=== PATIENT | male | born 1985 | race Caucasian/White ===

== ENCOUNTER 2018-08-23 07:30 | Outpatient (RCR) | payer OTHER, SELFPAY ==
[2018-08-01 08:16] VITALS: BMI 26.4
--- NOTE | 2018-08-09 08:10 | HP.PTEVAL_ITS ---
Patient's Visit Information HIPOLITO CAVAZOS is a 33 year old M referred to Physical Therapy by Joyce Aviles DC with a diagnosis of segmental somatic dysfunction of lumbar spine. Date of Evaluation: 08/08/18 Physical Therapist: Breezy Gomez DPT - Visit Plan Frequency: 1-2x /Week Duration: 4 Weeks Plan: Start with multi directional core stability exercises including mat, standing,ball and multifidus strengthening. - Subjective Findings: Pt. is here today for his initial evaluation with diagnosis of segmental somatic dysfunction of lumbar spine. Pt. is a 33 y.o. male who has had several episodes of low back pain it locks up on me. He reports having a recent episode ~4-6 weeks ago and was seeing his chiropractor. Pt. reports having good relief with adjustments in the past and similarly in this case. He is here today to receive core stability exercises to maintain strength in order to reduce risk of future episodes. Pt. reports no pain currently. 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 He reports last episode he was on the floor on his hands and knees and twisted to reach after his kids and my back went out. He reports having adjustments and this has decreased his pain significantly. Pt. is back to most activities, but has occassional increase in symptoms with bend and twisting. Pt. denies N/T and no pain extending past L gluteal region. - Pain lumabr spine Pain Intensity (Out of 10): 0 Pain Intensity Range: 0, 3 - Objective POSTURE: Pt. has decent lumbar lordosis, but has increasd thoracic kyphosis, worse in siting. PAPATION: Pt. has no pain or muscle tigthness of lumbar erector spine. No pain with spring testing fo lumbar spine, slight hypomobility noted. NEURO: Normal throughout. ROM: LUMBAR SPINE: Pt. has full lumbar ROM without increase in symptoms, no pain with over pressures. Pt. has tight HS and hip flexors bilaterally. MMT: RLE- ankle 5/5 throughout; knee 5/5 throughout; hip- flexion 5-/5, abd 5-/5; ext 5-/5. LLE- ankle 5/5 throughout; knee 5/5 throughout; hip- flexion 5-/5, abd 5-/5; ext 5-/5. Core strength- fair-. GAIT: Normal pattern without issues. STAIRS- no issues. - Special Tests L/S Slump test left side: Negative L/S Slump test right side: Negative L/S Left Straight Leg Raise: Negative L/S Right Straight Leg Raise: Negative L/S Instability PA Test: Negative L/S Prone Instability Test: Negative Lumbar Standing: Flexion - Mechanical Response: No effect Lumbar Standing: Flexion - Symptoms During Testing: No effect Lumbar Standing: Flexion - Symptoms After Testing: No effect Lumbar Standing: Extension - Mechanical Response: No effect Lumbar Standing: Extension - Symptoms During Testing: No effect Lumbar Standing: Extension - Symptoms After Testing: No effect Lumbar Standing: Right Side Glides - Mechanical Response: No effect Lumbar Standing: Right Side [place] - Symptoms During Testing: No effect Lumbar Standing: Right Side [place] - Symptoms After Testing: No effect Lumbar Standing: Left Side [place] - Mechanical Response: No effect Lumbar Standing: Left Side [place] - Symptoms During Testing: No effect Lumbar Standing: Left Side [place] - Symptoms After Testing: No effect Lumbar Lying: Flexion - Mechanical Response: No effect Lumbar Lying: Flexion - Symptoms During Testing: No effect Lumbar Lying: Flexion - Symptoms After Testing: No effect Lumbar Lying: Extension - Mechanical Response: No effect Lumbar Lying: Extension - Symptoms During Testing: No effect Lumbar Lying: Extension - Symptoms After Testing: No effect - Goals Goal 1:: Pt. to be I with HEP for core/hip strengthening. Goal Time Frame: 2-4 Weeks Goal 2:: Pt. to have increased hip and core strength increased by 1/2 grade of all effected musculture. Goal Time Frame: 2-4 Weeks Goal 3:: Pt. to complete all work activities without increase in symptoms. Goal Time Frame: 2-4 Weeks Goal 4:: Pt. to golf without increase in symptoms. Goal Time Frame: 2-4 Weeks - Rehabilitation Potential Physical Therapy Diagnosis: Pt. has signs and symptoms consistent with segmental somatic dysfunction of lumbar spine. Pt. has marked core weakness and would benefit from exercises to reduce stress on spine with all work and recreational exercises. Rehabilitation Potential: Excellent - Anticipated Interventions Patient/Client Instruction: Educate patient on: Condition, Plan of Care, Risk Factors, Benefits of Fitness Program For the Purpose of:: To improve decision making, To facilitate caregiver knowledge, To improve self management, To prevent re-injury, To improve ability to perform tasks related to life management, To improve tolerance to ADL's Therapeutic Exercise to Include: Strength training, Power training, Endurance training, Body mechanics, Postural training, Passive ROM, Active ROM, Dynamic Lumbar Stabilization, Armando Exercises, Scapular Strength/Stabilization For the Purpose of:: To decrease pain, To increase ROM, To improve nutrient delivery to tissue, To improve muscle performance and motor function, To improve health of tissue, To decrease soft tissue restriction, To increase flexibility/ROM Manual Therapy Techniques to Include: Mobilization, Functional dry needling, Soft tissue mobilization For the Purpose of:: To decrease pain, To increase ROM, To improve nutrient delivery to tissue, To increase oxygenation perfusion, To improve muscle performance and motor function Thank you for the opportunity to evaluate your patient. For Medicare and Medicare HMO plans, please review the plan of care and approve it. It will need to be FAXED BACK to us at [phone] for Medicare purposes. For Medicare only, by signing this I certify the plan of care. Please let me know if there are questions or concerns regarding this plan of care. Physician Signature: Dat e:
--- NOTE | 2018-12-03 13:47 | HP.PT.NRP ---
HP - Discharge Summary (1) - Patient Information HIPOLITO CAVAZOS was seen in my office for initial evaluation on 08/08/18. The following Plan of Care was established for this patient: Initial Frequency: 1-2x /Week Initial Duration: 4 Weeks - Anticipated Interventions Patient/Client Instruction: Educate patient on: Condition, Plan of Care, Risk Factors, Benefits of Fitness Program For the Purpose of:: To improve decision making, To facilitate caregiver knowledge, To improve self management, To prevent re-injury, To improve ability to perform tasks related to life management, To improve tolerance to ADL's Therapeutic Exercise to Include: Strength training, Power training, Endurance training, Body mechanics, Postural training, Passive ROM, Active ROM, Dynamic Lumbar Stabilization, Armando Exercises, Scapular Strength/Stabilization For the Purpose of:: To decrease pain, To increase ROM, To improve nutrient delivery to tissue, To improve muscle performance and motor function, To improve health of tissue, To decrease soft tissue restriction, To increase flexibility/ROM Manual Therapy Techniques to Include: Mobilization, Functional dry needling, Soft tissue mobilization For the Purpose of:: To decrease pain, To increase ROM, To improve nutrient delivery to tissue, To increase oxygenation perfusion, To improve muscle performance and motor function This patient was last seen in our office 08/23/18. Pertinent comments regarding their Physical therapy will appear below: Pt. was seen for his low back pain. Pt. did very well with core stability exercises. Pt. has not been seen in several months and will be DC from PT at this point in time. At this point I will be discontinuing this patient from physical therapy. I would be happy to see this patient again in the future if found appropriate by the physician. Thank you! Breezy Gomez DPT
== END 2018-08-23 19:00 | disposition home or self-care (01) ==
LOC: PT 07:30
PROVIDERS: Family Provider Family Medicine; PCP Family Medicine; Referring Provider Chiropractor; Visit Provider Chiropractor
DX: M99.02 Segmental and somatic dysfunction of thoracic region (principal); M99.03 Segmental and somatic dysfunction of lumbar region; M99.05 Segmental and somatic dysfunction of pelvic region
CPT/HCPCS: 97110; 97161

== ENCOUNTER 2020-12-12 20:11 | Day surgery (SDC) | payer BC, SELFPAY ==
[2020-12-12] VITALS (9 sets, daily range): BP systolic 114–137; BP diastolic 78–102; PULSE 71–90; RESP 14–18; TEMP 36.2–36.8; O2SAT 96–99; BMI 27.8
--- NOTE | 2020-12-12 20:28 | EDS_ITS ---
HPI History of Present Illness Chief Complaint: Foreign Body Detail of Chief Complaint: Foreign body in throat Informant: patient Narrative Narrative: Patient presents to the emergency department stating that he has a foreign body in his throat. 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 Patient was seen by his friend who is a physician Dr. Francisco who then saw patient in the office and did a flexible scope and noted that patient has a chicken bone stuck in the larynx. I was asked to see patient in the department and asked to give patient dose of Decadron and he will then be taken to the OR to have the chicken bone removed by Dr. Francisco. Patient otherwise denies any difficulty breathing. Denies abdominal pain. Has had no prior history of esophageal obstructions. Prior similar symptoms: No PFSH PFSH Medical History (Updated 12/12/20 @ 20:[address] Madhav Iqbal, DO) Depression Home Medications escitalopram oxalate 20 mg tablet 20 mg PO DAILY 05/08/18 [History Last Taken Unknown] Allergy/AdvReac Type Severity Reaction Status Date / Time No Known Allergies Allergy Verified 12/12/20 20:12 Family History Other Cancer Surgical History (Updated 12/12/20 @ 20:31 by Mai Davis) Hx of [facility] Social History Smoking Status: Never smoker alcohol intake: current alcohol intake frequency: a few times a week what type of physical activity do you participate in: running and aerobics ROS ROS ED Constitutional Constitutional ED: Reports systems reviewed and no addt'l complaints, except as documented; Denies body ache(s), change in weight or chills Eyes Eyes: Denies acute decrease in peripheral vision, change in vision, double vision or loss of vision ENT ENT ED: Reports none and other Details: Throat pain with foreign body sensation ; Denies ear pain, lip swelling, loss taste/smell, neck pain, otalgia or sore throat Cardiovascular Cardiovascular: Reports none; Denies abdominal pain, chest pain with activity, leg edema, lightheadedness, palpitations, rapid heart rate or syncope Respiratory/Chest Respiratory/Chest: Reports none; Denies change in mental status, dry cough, dyspnea, hemoptysis, shortness of breath at rest or shortness of breath with exertion Gastrointestinal Gastrointestinal: Reports none; Denies abdominal pain, change in stool character, diarrhea, hematemesis, hematochezia, melena, rectal bleeding or vomiting Genitourinary Genitourinary ED: Reports none; Denies abdominal discomfort, anuria, dysuria, genital pain or polyuria Musculoskeletal Musculoskeletal: Reports none; Denies arthralgias, back pain, difficulty walking , extremity pain, muscle weakness or myalgias Integumentary Reports none; Denies abscess or rash Neurologic Neurologic: Reports none; Denies abnormal gait, confusion, focal weakness, frequent falls, headache(s), loss of vision, numbness, paresthesias, radicular pain, vertigo or weakness Psychiatric Psychiatric: Reports systems reviewed and no addt'l complaints, except as documented and none; Denies behavioral changes, confusion, difficulty concentrating, hallucinations, suicidal ideation, tactile hallucinations or visual hallucinations Endocrine Endocrinology: Denies none, cold intolerance, excessive sweating, fatigue or heat intolerance Hematologic/Lymphatic Hematologic/Lymphatic: Reports none; Denies anemia, easy bleeding or easy bruising Allergic/Immunologic Allergic/Immunologic ED: Denies as per HPI, none, lip swelling, mouth swelling, throat swelling, tongue swelling or hives EXAM Physical Exam Const Vital Signs: 12/12/20 20:12 Temperature 98.2 F Temperature Source Temporal Pulse Rate 75 Respiratory Rate 14 Blood Pressure 137/102 H Blood Pressure Mean 113 Pulse Ox 98 Oxygen Delivery Method Room Air Positive well nourished and well developed General Appearance ED: well developed and NAD HEENT Reports TM's clear and moist mucous membranes normocephalic and atraumatic; Negative for trauma or tenderness Tympanic Membrane ED: Yes TM's clear Eyes PERRL and EOMs intact bilaterally General Eye ED: Negative for pale conjunctiva or scleral icterus Neck no lymphadenopathy, supple and no JVD General: Negative for tenderness Chest Wall inspection of chest normal and palpation of chest normal Chest: Negative for tenderness Resp normal respiratory effort and clear to auscultation bilaterally Effort and Inspection: Negative for respiratory distress or pain with movement Auscultation: Negative for rhonchi, wheezes or diminished lung sounds Cardio regular rate, regular rhythm, S1 normal heart sound, S2 normal heart sound and no murmurs Peripheral Pulses: pulses 2+ throughout GI normal to inspection, nondistended, normoactive bowel sounds, soft to palpation, non-tender, non-distended and no masses Back/Spine no CVA tenderness and no thoracic nor lumbar tenderness Extremity normal to inspection General Extremety ED: Negative for edema General Extremity: Negative for edema Neuro oriented x3, CN's II-XII intact bilaterally, no sensory deficits noted and gait normal Sensorium / Orientation: awake, alert, oriented to person, oriented to place and oriented to time Motor Exam: strength 5/5 throughout and strength abnormal Psych mental status grossly normal Skin no rashes or lesions noted and no wounds MDM MDM MDM Narrative Medical decision making narrative: Patient was evaluated by Dr. Francisco in the emergency department and will be taken to the OR for removal of foreign body. Discharge Plan Triage Chief Complaint: Foreign Body ED Provider: Madhav Iqbal Dx/Rx/DC Orders Clinical Impression: Foreign body of throat Prescriptions: No Action escitalopram oxalate [Lexapro] 20 mg tablet 20 mg PO DAILY RF: 0 Primary Care Provider: Kosta Francisco Referrals: Kosta Francisco MD [Primary Care Provider] - Disposition Disposition: Acute Care Hospital [facility]
[2020-12-12] MEDS: dexAMETHasone 10 MG/ML Vial IV (20:33)
--- NOTE | 2020-12-12 20:56 | CON.PCM_ITS ---
Assessment & Plan Assessment/Plan (1) Foreign body in larynx: PLAN: chicken bone in larynx -to OR for removal HPI Consult Data Date of Consult: 12/12/20 HPI Narrative HPI Narrative: HIPOLITO CAVAZOS, is a 35 M who presents with a laryngeal foreign body. roughly 1.5 hours ago, he ate a chicken wing and felt like something was lodged in his throat. laryngoscopy at [facility] showed a right-sided chicken bone oriented in the AP diameter in his right hemilarynx lateral to his epiglottis and arytenoid. he is here for removal. he has odynophagia. no dyspnea, no stridor. [facility] Medical History (Updated 12/12/20 @ 21:[address] Luan Coley MD) Depression Home Medications escitalopram oxalate 20 mg tablet 20 mg PO DAILY 05/08/18 [History Last Taken Unknown] Allergy/AdvReac Type Severity Reaction Status Date / Time No Known Allergies Allergy Verified 12/12/20 20:12 Family History Other Cancer Surgical History (Updated 12/12/20 @ 20:31 by Mai Davis) Hx of [facility] Social History Smoking Status: Never smoker alcohol intake: current alcohol intake frequency: a few times a week what type of physical activity do you participate in: running and aerobics ROS Constitutional Constitutional: Reports as per HPI; Denies body ache(s) ENT HEENT: Denies change in voice or dysphagia Respiratory/Chest Respiratory/Chest: Denies dry cough, dyspnea or dyspnea on exertion Physical Exam Const alert and oriented x3 General Appearance: cooperative and comfortable Orientation / Consciousness: awake and oriented to person HEENT head/scalp atraumatic, moist oral mucous membranes and oropharynx normal Face and Sinus: normal facial exam Nose: external nose normal and nares normal Mouth: oral and palatal mucosa normal, lips normal, tongue normal and moist mucous membranes abnormal Throat: posterior oropharynx normal
--- NOTE | 2020-12-12 21:38 | PCM.OPRPT ---
Problems Associated Problem List Diagnoses (1) Foreign body in larynx: Report of Operation Date of Procedure: 12/12/20 Pre-Operative Diagnosis: foreign body, larynx Post-Operative Diagnosis: foreign body, larynx Surgery/Procedure Performed:: diagnostic laryngoscopy with removal laryngeal foreign body Surgeon: Luan Coley Type of Anesthesia: General Description of Procedure: on the day of the procedure after appropriate informed consent was obtained, the patient was brought to the operating room and placed in supine position on the operating table. he was placed under general endotracheal anesthesia by the anesthesiologist using the glide scope with care not to dislodge the bone. the endotracheal tube was secured, the eyes were taped. a talley blade was used to evaluate the larynx. the bone was removed with a cupped biting forceps. no bleeding was seen and no laryngeal trauma was noticed. cords were normal. the patient was awoken from anesthesia and transferred to the PACU in stable condition.
== END 2020-12-12 22:09 ==
LOC: ED 20:46 → SDC 20:48 → AC 20:52
PROVIDERS: Emergency Provider Emergency Medicine; PCP Family Medicine; Visit Provider Otolaryngology
PROC: (CPT 31530; principal; 2020-12-12 21:30)
DX: T17.328A Food in larynx causing other injury, initial encounter (principal); X58.XXXA Exposure to other specified factors, initial encounter; Y93.9 Activity, unspecified; Y92.9 Unspecified place or not applicable; Y99.9 Unspecified external cause status; F32.9 Major depressive disorder, single episode, unspecified; Z79.899 Other long term (current) drug therapy
CPT/HCPCS: 00320; 31530; 99284; A4216